=== PATIENT | male | born 2000 | race Caucasian/White ===

== ENCOUNTER 2021-02-06 10:37 | Emergency (ER) | payer OTHER ==
[~2021-02-06] VITALS: Ht 182.9 cm; Wt 90.7 kg
[2021-02-09] MEDS ORDERED: PROTONIX40 M1 PO (13:36)
== END 2021-02-06 13:15 | disposition home or self-care (01) ==
LOC: ER 10:37
DX: B34.9 Viral infection, unspecified (principal); Z11.52 Encounter for screening for COVID-19